=== PATIENT | female | born 1980 | race Caucasian/White ===

== ENCOUNTER 2019-12-27 12:23 | Emergency (ER) | payer OTHER ==
[~2019-12-27] VITALS: Ht 165.1 cm; Wt 57.6 kg
[~2019-12-27 12:23] MED LIST: ABILIFY 5 MG TAB5 MG PO; ACETAMINOPHEN-1 EAC1 PO; ADVIL MIGRAINE200 MG PO; ALEVE220 M1; ALEVE220 MG PO; APAP500; ATIVAN0.5 MG PO; ATIVAN1 MG PO; AZITHROMYCIN 2250 MG PO; BACTRIM DS TAB1 EACH PO; BUSPAR30 MG PO; BUSPIRONE HCL10 MG PO; CARISOPRODOL 3350 MG PO; CIPRO500 MG PO; CLEOCIN HCL150 MG PO; CLEOCIN HCL300 MG PO; COUMADIN PO; DAYPRO600 MG PO; DEPAKOTE250 MG PO; DOXYCYCLINE HY100 MG PO; FLAGYL500 MG PO; FLEXERIL; FLEXERIL PO; GABAPENTIN; GABAPENTIN800 M1 PO; HYDROCODONE-AP1 EAC6 PO; IBUPROFEN 200200 M1 PO; IBUPROFEN 400400 M1; IBUPROFEN 600600 M1; IBUPROFEN 600600 M1 PO; KEFLEX500 MG PO; KEPPRA 500 MG500 M1 PO; KEPPRA 500 MG500 MG PO; LAMICTAL 25 MG25 M1 PO; LITHIUM CARBON300 M3 PO; LITHIUM CARBON600 MG PO; MACROBID 100 M100 M2 PO; MEDROLDOSEPACK PO; NAPROSYN500 MG PO; NEURONTIN 300300 M1 PO; NEURONTIN 400400 M1 PO; NEURONTIN 400M400 M2 PO; NEURONTIN800 MG; NEURONTIN800 MG PO; NOHOMEMEDICATIONS; NORCO 5-325 TA1 EAC1 PO; NORCO 5-325 TA1 EACH PO; ONDANSETRON HCL4 M2 PO; PERCOCET 5-3251 EACH PO; PHENAZOPYRIDIN200 M2 PO; PREDNISONE 10 M10 MG PO; PREDNISONE 20 M20 MG PO; PROAIR HFA8.5 GM INH; PROMETHAZINE12.5 M1 PO; PROZAC20 MG PO; ROXICODONE30 MG PO; SEROQUEL 25 MG25 M1 PO; TESSALON PERLE100 M1 PO; TESSALON200 MG PO; TUSSIONEX PENN473 ML PO; VALIUM2 MG PO; VALIUM5 MG PO; VENTOLIN HFA 1818 GM INH; VICOPROFEN 2001 EACH PO; XANAX 0.25 MG0.25 MG PO; ZOFRAN 4 MG ORAL4 M1 DIS; ZPAK PO
[2019-12-27] MEDS ORDERED: KEPPRA XR750 MG PO (12:42)
[2019-12-27 14:45] LABS: CALCIUM 8.8 mg/dL (8.5-10.1); CREATININE 0.9 mg/dL (0.6-1.0); MAGNESIUM 1.6 mg/dL (1.8-2.4); POTASSIUM 3.8 mmol/L (3.5-5.1)
[2019-12-27] MEDS ORDERED: GABAPENTIN800 M1 PO (15:14)
[2019-12-27] MEDS ORDERED: KEPPRA750 MG PO (15:14)
[2019-12-27 15:33] VITALS: BP 131/77
== END 2019-12-27 15:35 | disposition home or self-care (01) ==
LOC: ER 12:23
PROVIDERS: Emergency Medicine
DX: F41.9 Anxiety disorder, unspecified (principal); R56.9 Unspecified convulsions; Z76.0 Encounter for issue of repeat prescription; G89.29 Other chronic pain; F17.210 Nicotine dependence, cigarettes, uncomplicated; Z86.711 Personal history of pulmonary embolism; Z87.442 Personal history of urinary calculi; Z79.899 Other long term (current) drug therapy; Z88.5 Allergy status to narcotic agent; Z88.0 Allergy status to penicillin; Z88.8 Allergy status to other drugs, medicaments and biological substances; Z88.6 Allergy status to analgesic agent

== ENCOUNTER 2020-11-02 22:42 | Emergency (ER) | payer OTHER ==
[~2020-11-02] VITALS: Ht 165.1 cm; Wt 57.1 kg
[~2020-11-02 22:42] MED LIST changes: +KEPPRA XR750 MG PO; +KEPPRA750 MG PO
[2020-11-02] MEDS ORDERED: MIDODRINE HCL 55 M1 PO (22:51)
[2020-11-02 23:43] LABS: URINE BILIRUBIN NEGATIVE (Negative); URINE BLOOD NEGATIVE (Negative); URINE CLARITY CLEAR; URINE COLOR YELLOW; URINE GLUCOSE-RANDOM* NEGATIVE (Negative); URINE KETONES NEGATIVE (Negative); URINE LEUKOCYTES-REFLEX NEGATIVE (Negative); URINE NITRITE-REFLEX NEGATIVE (Negative); URINE PROTEIN (DIPSTICK) TRACE (Negative); URINE SPECIFIC GRAVITY 1.025 (1.005-1.035); URINE UROBILINOGEN 0.2 E.U./dl (0.2-1.0)
[2020-11-02 23:54] LABS: ABSOLUTE NEUTROPHILS 2.1 thou/uL (1.4-8.2); BASOPHILS 0.5 % (0.0-2.0); EOSINOPHILS 0.1 % (0.0-3.0); HEMATOCRIT 37.8 % (37.0-47.0); LYMPHOCYTES 38.4 % (24.0-44.0); MCH 31.3 pg (26.0-34.0); MCHC 31.8 g/dL (28.0-37.0); MCV 98.3 fL (80.0-100.0); MONOCYTES 10.4 % (1.0-8.0); PLATELET COUNT 183 thou/uL (150-400); POLYS 50.6 % (36.0-66.0); RBC 3.85 mil/uL (4.20-5.00); RDW 13.9 % (10.5-14.5); WBC 4.1 thou/uL (4.0-11.0)
[2020-11-03 00:07] LABS: ANION GAP 12 mmol/L (7-16); BUN 17 mg/dL (7-18); CALCIUM 8.4 mg/dL (8.5-10.1); CHLORIDE 102 mmol/L (98-107); CO2 26 mmol/L (21-32); CREATININE 1.1 mg/dL (0.6-1.0); GLUCOSE 79 mg/dL (74-106); SODIUM 140 mmol/L (136-145)
[2020-11-03 00:08] LABS: POTASSIUM 4.4 mmol/L (3.5-5.1)
[2020-11-03 00:13] LABS: ALBUMIN 3.7 g/dL (3.4-5.0); DIRECT BILIRUBIN < 0.1 mg/dL (<0.1-0.2); LIPASE 100 U/L (73-393); SGOT 33 U/L (15-37); SGPT 27 U/L (30-65); TOTAL BILIRUBIN 0.3 mg/dL (0.2-1.0); TOTAL PROTEIN 7.4 g/dL (6.4-8.2)
[2020-11-03 03:41] VITALS: BP 118/50
== END 2020-11-03 03:46 | disposition home or self-care (01) ==
LOC: ER 22:42
PROVIDERS: Emergency Medicine
DX: R10.30 Lower abdominal pain, unspecified (principal); F17.210 Nicotine dependence, cigarettes, uncomplicated; Z79.899 Other long term (current) drug therapy; Z88.0 Allergy status to penicillin; Z88.8 Allergy status to other drugs, medicaments and biological substances